=== PATIENT | male | born 1950 | race African-American/Black ===

== ENCOUNTER 2017-10-21 10:48 | Inpatient (IN) | payer MEDICARE, MEDICAID ==
[~2017-10-21] VITALS: Ht 200.7 cm; Wt 96.9 kg
[2017-10-21 11:53] LABS: BASOPHILS # (AUTO) 0.02 x10^3/uL (0-0.1); BASOPHILS % (AUTO) 0 % (0-1); EOSINOPHILS % (AUTO) 0 % (1-7); LYMPHOCYTES # (AUTO) 0.65 x10^3/uL (1-3.4); LYMPHOCYTES % (AUTO) 8 % (22-44); MD NO; MEAN CORPUSCULAR HEMOGLOBIN 28.5 pg (27.5-34.5); MEAN CORPUSCULAR HGB CONC 32.1 g/dL (33.2-36.2); MEAN CORPUSCULAR VOLUME 88.8 fL (81-97); MEAN PLATELET VOLUME 9.1 fL (7.4-10.4); MONOCYTES # (AUTO) 0.47 x10^3/uL (0.2-0.8); MONOCYTES % (AUTO) 5 % (2-9); NEUTROPHILS # (AUTO) 7.58 x10^3/uL (1.8-6.8); NEUTROPHILS % (AUTO) 87 % (42-75); PLATELET COUNT 252 x10^3/uL (130-400); RED BLOOD COUNT 4.61 x10^6/uL (4.38-5.82); RED CELL DISTRIBUTION WIDTH 18.6 % (9.4-14.8)
[2017-10-21 12:08] LABS: ALANINE AMINOTRANSFERASE 38 U/L (12-78); ALBUMIN 2.6 g/dL (3.4-5.0); CREATININE 2.92 mg/dL (0.7-1.3)
[2017-10-21 12:10] LABS: ALKALINE PHOSPHATASE 125 U/L (45-117); BILIRUBIN,TOTAL 2.4 mg/dL (0.2-1.0); TOTAL PROTEIN 7.6 g/dL (6.4-8.2)
[2017-10-21 12:14] LABS: ANION GAP 16 mmol/L (5-15); CHLORIDE 95 mmol/L (98-107)
[2017-10-21 12:23] LABS: INTERNATIONAL NORMALIZED RATIO 1.38 (0.93-1.1); PROTHROMBIN TIME 14.3 Seconds (9.6-11.5)
[2017-10-21] MEDS ORDERED: LABETALOL 5MG/ML, 20ML IVPush PRN (14:00)
[2017-10-21] MEDS ORDERED: HEPARIN 5,000 UNITS/ML, 1ML SQ SCH (14:00)
[2017-10-21] MEDS: FUROSEMIDE 40 MG/4 ML IV SCH ×2 (14:00→16:53)
[2017-10-21] MEDS ORDERED: ONDANSETRON 2MG/ML, 2ML IVPush PRN (14:00)
[2017-10-21] MEDS ORDERED: POLYETHYLENE GLYCOL 17 GM PACKET PO PRN (14:00)
[2017-10-21] MEDS ORDERED: ONDANSETRON ODT 4 MG PO PRN (14:00)
[2017-10-21] MEDS ORDERED: FUROSEMIDE 40 MG/4 ML IV ONE (14:00)
[2017-10-21] MEDS ORDERED: morphine SULFATE 10 MG/ML, 1ML IVPush PRN (14:00)
[2017-10-21] MEDS ORDERED: SODIUM CHLORIDE 0.9% 1,000 ML IV SCH (14:00)
[2017-10-21] MEDS ORDERED: FUROSEMIDE 40 MG/4 ML ONE (14:29)
[2017-10-21] MEDS ORDERED: HEPARIN 5,000 UNITS/ML, 1ML ONE (14:29)
[2017-10-21] MEDS ORDERED: ASPIRIN 81 MG TABLET EC PO ONE (14:30)
[2017-10-21 14:36] LABS: TROPONIN I 0.107 ng/mL (0.000-0.045)
[2017-10-21 14:39] LABS: FREE T4 (FREE THYROXINE) 0.44 ng/dL (0.76-1.46)
[2017-10-21] MEDS ORDERED: ASPIRIN 81 MG TABLET EC ONE (15:27)
[2017-10-21 15:51] VITALS: BP 117/75
[2017-10-21 17:11] LABS: CULTURE INDICATED? YES; MICROSCOPIC INDICATED
[2017-10-21 18:37] LABS: AMPHETAMINE SCREEN, URINE Negative (Negative); BARBITURATE SCREEN, URINE Negative (Negative); BENZODIAZEPINE SCREEN, URINE Negative (Negative); CANNABINOID SCREEN, URINE Negative (Negative); COCAINE SCREEN, URINE Negative (Negative); METHADONE SCREEN, URINE Negative (Negative); OPIATE SCREEN, URINE Negative (Negative)
[2017-10-21] MEDS: LACTATED RINGERS 1,000 ML IV SCH (18:50)
[2017-10-21 18:53] LABS: CHOLESTEROL, TOTAL 87 mg/dL (140-239); TRIGLYCERIDES 88 mg/dL (50-200); VLDL CHOLESTEROL 18 mg/dL (0-25)
[2017-10-21 18:56] LABS: CHOL/HDL RATIO 1.9; HDL CHOL % 54 % (26-37); HDL CHOLESTEROL (DIRECT) 47 mg/dL (40-60); LDL CHOLESTEROL,CALCULATED 22 mg/dL (54-169); LDL/HDL RATIO 0.5 (0.5-3.0); TROPONIN I 0.103 ng/mL (0.000-0.045)
[2017-10-21 18:57] VITALS: BP 119/74
[2017-10-21 19:34] LABS: HEMOGLOBIN A1C 7.3 % (4.2-6.3)
[2017-10-22 01:12] VITALS: BP 127/81
[2017-10-22] MEDS: LACTATED RINGERS 1,000 ML IV SCH ×2 (04:21→14:56)
[2017-10-22 04:52] LABS: BASOPHILS # (AUTO) 0.03 x10^3/uL (0-0.1); BASOPHILS % (AUTO) 1 % (0-1); EOSINOPHILS # (AUTO) 0.02 x10^3/uL (0-0.4); EOSINOPHILS % (AUTO) 0 % (1-7); LYMPHOCYTES # (AUTO) 1.09 x10^3/uL (1-3.4); LYMPHOCYTES % (AUTO) 18 % (22-44); MD NO; MEAN CORPUSCULAR HEMOGLOBIN 28.1 pg (27.5-34.5); MEAN CORPUSCULAR HGB CONC 31.8 g/dL (33.2-36.2); MEAN CORPUSCULAR VOLUME 88.2 fL (81-97); MONOCYTES # (AUTO) 0.54 x10^3/uL (0.2-0.8); MONOCYTES % (AUTO) 9 % (2-9); NEUTROPHILS # (AUTO) 4.52 x10^3/uL (1.8-6.8); NEUTROPHILS % (AUTO) 73 % (42-75); PLATELET COUNT 209 x10^3/uL (130-400); RED BLOOD COUNT 4.37 x10^6/uL (4.38-5.82); RED CELL DISTRIBUTION WIDTH 18.6 % (9.4-14.8)
[2017-10-22 05:03] LABS: ALANINE AMINOTRANSFERASE 32 U/L (12-78); ALBUMIN 2.4 g/dL (3.4-5.0); ANION GAP 11 mmol/L (5-15); CALCIUM 8.6 mg/dL (8.5-10.1); CHLORIDE 98 mmol/L (98-107); CREATININE 2.15 mg/dL (0.7-1.3)
[2017-10-22 05:13] LABS: ALKALINE PHOSPHATASE 108 U/L (45-117); TOTAL PROTEIN 6.9 g/dL (6.4-8.2)
[2017-10-22 06:26] VITALS: BP 128/65
[2017-10-22] MEDS: ASPIRIN 81 MG TABLET EC PO SCH (06:28)
[2017-10-22] MEDS: LEVOTHYROXINE 75 MCG TABLET PO SCH (06:29)
[2017-10-22] MEDS ORDERED: POTASSIUM CHLORIDE 20 MEQ TAB.ER.PRT PO ONE (08:00)
[2017-10-22 08:14] LABS: TROPONIN I 0.089 ng/mL (0.000-0.045)
[2017-10-22] MEDS: SENNA/DOCUSATE TABLET PO SCH (08:25)
[2017-10-22] MEDS: POTASSIUM CHLORIDE 20 MEQ TAB.ER.PRT PO SCH ×2 (11:30→17:49)
[2017-10-22 12:42] VITALS: BP 118/82
[2017-10-22 18:04] LABS: ANION GAP 11 mmol/L (5-15); CALCIUM 8.5 mg/dL (8.5-10.1); CHLORIDE 99 mmol/L (98-107); CREATININE 1.83 mg/dL (0.7-1.3)
[2017-10-22] MEDS ORDERED: PHARMACY MAY ADJ FOR RENAL FX MC PRN (18:30)
[2017-10-22 19:12] VITALS: BP 119/68
[2017-10-22] MEDS: AMPICILLIN/SULBACTAM 3 GM in SODIUM CHLORIDE 0.9% 100 ML IV SCH (19:43)
[2017-10-22] MEDS: DOXYCYCLINE 100MG TABLET PO SCH (19:44)
[2017-10-22 23:02] LABS: CLOSTRIDIUM DIFFICILE TOXIN NEGATIVE (Negative)
[2017-10-22 23:04] LABS: CLOSTRIDIUM DIFFICILE ANTIGEN POSITIVE
[2017-10-23 00:45] VITALS: BP 112/69
[2017-10-23] MEDS: AMPICILLIN/SULBACTAM 3 GM in SODIUM CHLORIDE 0.9% 100 ML IV SCH ×4 (00:46→18:56)
[2017-10-23] MEDS: ASPIRIN 81 MG TABLET EC PO SCH (05:43)
[2017-10-23] MEDS: LEVOTHYROXINE 75 MCG TABLET PO SCH (05:43)
[2017-10-23 05:50] LABS: BASOPHILS # (AUTO) 0.04 x10^3/uL (0-0.1); BASOPHILS % (AUTO) 1 % (0-1); EOSINOPHILS # (AUTO) 0.04 x10^3/uL (0-0.4); EOSINOPHILS % (AUTO) 1 % (1-7); LYMPHOCYTES # (AUTO) 0.82 x10^3/uL (1-3.4); LYMPHOCYTES % (AUTO) 13 % (22-44); MD NO; MEAN CORPUSCULAR HEMOGLOBIN 28.1 pg (27.5-34.5); MEAN CORPUSCULAR HGB CONC 31.5 g/dL (33.2-36.2); MEAN CORPUSCULAR VOLUME 89.4 fL (81-97); MEAN PLATELET VOLUME 8.8 fL (7.4-10.4); MONOCYTES # (AUTO) 0.57 x10^3/uL (0.2-0.8); MONOCYTES % (AUTO) 9 % (2-9); NEUTROPHILS # (AUTO) 4.99 x10^3/uL (1.8-6.8); NEUTROPHILS % (AUTO) 77 % (42-75); PLATELET COUNT 240 x10^3/uL (130-400); RED BLOOD COUNT 4.68 x10^6/uL (4.38-5.82)
[2017-10-23 06:35] LABS: ALANINE AMINOTRANSFERASE 31 U/L (12-78); ALBUMIN 2.3 g/dL (3.4-5.0); ANION GAP 9 mmol/L (5-15); CALCIUM 8.4 mg/dL (8.5-10.1); CHLORIDE 102 mmol/L (98-107); CREATININE 1.68 mg/dL (0.7-1.3)
[2017-10-23 06:37] LABS: ALKALINE PHOSPHATASE 111 U/L (45-117); BILIRUBIN,TOTAL 1.6 mg/dL (0.2-1.0); TOTAL PROTEIN 6.9 g/dL (6.4-8.2)
[2017-10-23] MEDS ORDERED: PHARMACY MAY ADJ FOR RENAL FX MC PRN (07:30)
[2017-10-23 07:41] VITALS: BP 118/69
[2017-10-23 08:03] LABS: % IRON SATURATION 6 % (20-55); IRON LEVEL 18 mcg/dL (65-175); TOTAL IRON BINDING CAPACITY 289 mcg/dL (250-450)
[2017-10-23 08:07] LABS: TROPONIN I 0.092 ng/mL (0.000-0.045)
[2017-10-23 08:29] LABS: FOLATE LEVEL 19.4 ng/mL (3.1-17.5)
[2017-10-23] MEDS ORDERED: LEVOTHYROXINE 100 MCG INJ IVPush SCH (09:00)
[2017-10-23] MEDS: SENNA/DOCUSATE TABLET PO SCH (09:00)
[2017-10-23] MEDS: VANCOMYCIN 50 MG/ML ORAL SUSP PO SCH ×3 (09:31→21:59)
[2017-10-23] MEDS: TAMSULOSIN 0.4 MG CAP.ER.24H PO SCH (09:32)
[2017-10-23] MEDS: DOXYCYCLINE 100MG TABLET PO SCH (09:32)
[2017-10-23] MEDS: POTASSIUM CHLORIDE 20 MEQ TAB.ER.PRT PO SCH ×2 (09:34→17:23)
[2017-10-23 13:27] VITALS: BP 122/73
[2017-10-23] MEDS ORDERED: LIDOCAINE-MPF 1%, 2ML ONE (14:59)
[2017-10-23] MEDS: D5%-0.9% NACL 1,000 ML IV SCH (17:23)
[2017-10-23 19:14] VITALS: BP 126/73
[2017-10-23] MEDS ORDERED: VANCOMYCIN PER PHARMACY MC PRN (22:00)
[2017-10-23] MEDS ORDERED: DOXYCYCLINE 100 MG in DEXTROSE 5% 250 ML IV SCH (22:00)
[2017-10-23] MEDS ORDERED: PHARMACOKINETIC CONSULTATION MC ONE (22:00)
[2017-10-23] MEDS ORDERED: PHARMACOKINETIC MONITORING MC PRN (22:00)
[2017-10-23] MEDS: VANCOMYCIN 2,000 MG in SODIUM CHLORIDE 0.9% 500 ML IV SCH (22:54)
[2017-10-24 01:05] VITALS: BP 131/74
[2017-10-24] MEDS: AMPICILLIN/SULBACTAM 3 GM in SODIUM CHLORIDE 0.9% 100 ML IV SCH ×4 (01:12→18:31)
[2017-10-24] MEDS: VANCOMYCIN 50 MG/ML ORAL SUSP PO SCH ×4 (03:13→21:26)
[2017-10-24] MEDS: D5%-0.9% NACL 1,000 ML IV SCH (05:20)
[2017-10-24 05:29] LABS: BASOPHILS # (AUTO) 0.02 x10^3/uL (0-0.1); BASOPHILS % (AUTO) 0 % (0-1); EOSINOPHILS # (AUTO) 0.03 x10^3/uL (0-0.4); EOSINOPHILS % (AUTO) 1 % (1-7); LYMPHOCYTES # (AUTO) 0.82 x10^3/uL (1-3.4); LYMPHOCYTES % (AUTO) 15 % (22-44); MD NO; MEAN CORPUSCULAR HEMOGLOBIN 28.3 pg (27.5-34.5); MEAN CORPUSCULAR HGB CONC 31.9 g/dL (33.2-36.2); MEAN CORPUSCULAR VOLUME 88.8 fL (81-97); MEAN PLATELET VOLUME 8.9 fL (7.4-10.4); MONOCYTES # (AUTO) 0.54 x10^3/uL (0.2-0.8); MONOCYTES % (AUTO) 10 % (2-9); NEUTROPHILS # (AUTO) 4.14 x10^3/uL (1.8-6.8); NEUTROPHILS % (AUTO) 75 % (42-75); PLATELET COUNT 239 x10^3/uL (130-400); RED BLOOD COUNT 4.68 x10^6/uL (4.38-5.82); RED CELL DISTRIBUTION WIDTH 18.7 % (9.4-14.8)
[2017-10-24] MEDS: LEVOTHYROXINE 75 MCG TABLET PO SCH (05:29)
[2017-10-24] MEDS: ASPIRIN 81 MG TABLET EC PO SCH ×2 (05:29→12:40)
[2017-10-24 05:39] LABS: CREATININE 1.69 mg/dL (0.7-1.3)
[2017-10-24 05:46] LABS: ALANINE AMINOTRANSFERASE 26 U/L (12-78); ALBUMIN 2.2 g/dL (3.4-5.0); ALKALINE PHOSPHATASE 102 U/L (45-117); BILIRUBIN,TOTAL 1.8 mg/dL (0.2-1.0); CALCIUM 8.5 mg/dL (8.5-10.1); CREATININE 1.71 mg/dL (0.7-1.3); TOTAL PROTEIN 6.7 g/dL (6.4-8.2)
[2017-10-24 06:07] LABS: ANION GAP 10 mmol/L (5-15); CHLORIDE 105 mmol/L (98-107)
[2017-10-24 06:57] VITALS: BP 125/74
[2017-10-24] MEDS: SENNA/DOCUSATE TABLET PO SCH (08:25)
[2017-10-24] MEDS: TAMSULOSIN 0.4 MG CAP.ER.24H PO SCH (08:25)
[2017-10-24] MEDS ORDERED: REGADENOSON 0.4 MG/5 ML SYRINGE ONE (09:33)
[2017-10-24] MEDS: LISINOPRIL 10 MG TABLET PO SCH (11:00)
[2017-10-24] MEDS: FUROSEMIDE 20 MG/2 ML IV SCH ×2 (12:40→17:30)
[2017-10-24 14:00] VITALS: BP 127/73
[2017-10-24] MEDS ORDERED: LIDOCAINE-MPF 1%, 5ML ONE (15:27)
[2017-10-24] MEDS: ATORVASTATIN 20 MG TABLET PO SCH (20:12)
[2017-10-24 20:21] VITALS: BP 131/76
[2017-10-25] MEDS: AMPICILLIN/SULBACTAM 3 GM in SODIUM CHLORIDE 0.9% 100 ML IV SCH ×4 (00:16→22:15)
[2017-10-25 02:00] VITALS: BP 124/73
[2017-10-25] MEDS: VANCOMYCIN 50 MG/ML ORAL SUSP PO SCH ×4 (03:57→21:48)
[2017-10-25 06:09] VITALS: BP 116/62
[2017-10-25] MEDS: METOPROLOL SUCCINATE 25 MG TAB.ER.24H PO SCH (06:12)
[2017-10-25] MEDS: LEVOTHYROXINE 75 MCG TABLET PO SCH (06:12)
[2017-10-25] MEDS: ASPIRIN 81 MG TABLET EC PO SCH (06:13)
[2017-10-25 06:47] LABS: MEAN CORPUSCULAR HEMOGLOBIN 27.6 pg (27.5-34.5); MEAN CORPUSCULAR HGB CONC 30.9 g/dL (33.2-36.2); MEAN CORPUSCULAR VOLUME 89.3 fL (81-97); MEAN PLATELET VOLUME 8.9 fL (7.4-10.4); PLATELET COUNT 238 x10^3/uL (130-400); RED CELL DISTRIBUTION WIDTH 18.7 % (9.4-14.8)
[2017-10-25 06:54] LABS: ALANINE AMINOTRANSFERASE 22 U/L (12-78); ALBUMIN 2.2 g/dL (3.4-5.0); ANION GAP 10 mmol/L (5-15); CALCIUM 8.7 mg/dL (8.5-10.1); CHLORIDE 102 mmol/L (98-107); CREATININE 1.92 mg/dL (0.7-1.3)
[2017-10-25 06:56] LABS: ALKALINE PHOSPHATASE 94 U/L (45-117); BILIRUBIN,TOTAL 1.7 mg/dL (0.2-1.0); TOTAL PROTEIN 6.6 g/dL (6.4-8.2)
[2017-10-25 07:04] LABS: BASOPHILS # (AUTO) 0.03 x10^3/uL (0-0.1); BASOPHILS % (AUTO) 1 % (0-1); EOSINOPHILS % (AUTO) 2 % (1-7); LYMPHOCYTES % (AUTO) 21 % (22-44); MD SCAN; MONOCYTES # (AUTO) 0.61 x10^3/uL (0.2-0.8); MONOCYTES % (AUTO) 10 % (2-9); NEUTROPHILS # (AUTO) 4.22 x10^3/uL (1.8-6.8); NEUTROPHILS % (AUTO) 67 % (42-75)
[2017-10-25] MEDS: FUROSEMIDE 40 MG/4 ML IV SCH ×2 (10:00→17:30)
[2017-10-25] MEDS ORDERED: FUROSEMIDE 20 MG/2 ML ONE (10:20)
[2017-10-25] MEDS: SPIRONOLACTONE 25 MG TABLET PO SCH (10:41)
[2017-10-25] MEDS: VANCOMYCIN 2,000 MG in SODIUM CHLORIDE 0.9% 500 ML IV SCH (10:41)
[2017-10-25] MEDS: TAMSULOSIN 0.4 MG CAP.ER.24H PO SCH (10:41)
[2017-10-25] MEDS: LISINOPRIL 10 MG TABLET PO SCH (10:41)
[2017-10-25] MEDS: POTASSIUM CHLORIDE 20 MEQ TAB.ER.PRT PO SCH (10:41)
[2017-10-25] MEDS: HEPARIN 5,000 UNITS/ML, 1ML SQ SCH ×2 (10:41→17:30)
[2017-10-25] MEDS: SENNA/DOCUSATE TABLET PO SCH (10:42)
[2017-10-25 15:10] VITALS: BP 110/68
[2017-10-25 19:15] VITALS: BP 121/70
[2017-10-25] MEDS: ATORVASTATIN 20 MG TABLET PO SCH (21:48)
[2017-10-26] MEDS: HEPARIN 5,000 UNITS/ML, 1ML SQ SCH ×3 (02:15→18:12)
[2017-10-26 02:47] VITALS: BP 100/69
[2017-10-26] MEDS: VANCOMYCIN 50 MG/ML ORAL SUSP PO SCH ×4 (03:42→21:06)
[2017-10-26] MEDS: AMPICILLIN/SULBACTAM 3 GM in SODIUM CHLORIDE 0.9% 100 ML IV SCH ×4 (04:19→23:25)
[2017-10-26 05:02] LABS: ANION GAP 9 mmol/L (5-15); CALCIUM 8.2 mg/dL (8.5-10.1); CHLORIDE 101 mmol/L (98-107)
[2017-10-26 05:03] LABS: CREATININE 1.71 mg/dL (0.7-1.3)
[2017-10-26] MEDS: METOPROLOL SUCCINATE 25 MG TAB.ER.24H PO SCH (06:00)
[2017-10-26] MEDS: ASPIRIN 81 MG TABLET EC PO SCH (06:13)
[2017-10-26] MEDS: LEVOTHYROXINE 75 MCG TABLET PO SCH (06:13)
[2017-10-26 07:17] VITALS: BP 94/60
[2017-10-26] MEDS: SENNA/DOCUSATE TABLET PO SCH ×2 (09:00→09:20)
[2017-10-26] MEDS ORDERED: POTASSIUM CHLORIDE 20 MEQ TAB.ER.PRT PO ONE (09:00)
[2017-10-26] MEDS: TAMSULOSIN 0.4 MG CAP.ER.24H PO SCH (09:19)
[2017-10-26] MEDS: LISINOPRIL 10 MG TABLET PO SCH (09:19)
[2017-10-26] MEDS: POTASSIUM CHLORIDE 20 MEQ TAB.ER.PRT PO SCH (09:19)
[2017-10-26] MEDS: SPIRONOLACTONE 25 MG TABLET PO SCH (09:20)
[2017-10-26] MEDS: FUROSEMIDE 40 MG/4 ML IV SCH ×2 (09:20→18:11)
[2017-10-26 15:50] VITALS: BP 99/64
[2017-10-26] MEDS: INSULIN LISPRO 100 UNITS/ML, PEN SQ-INSULIN SCH ×2 (16:00→21:00)
[2017-10-26 18:44] VITALS: BP 111/72
[2017-10-26] MEDS: ATORVASTATIN 20 MG TABLET PO SCH (21:06)
[2017-10-26] MEDS: VANCOMYCIN 2,000 MG in SODIUM CHLORIDE 0.9% 500 ML IV SCH (21:06)
[2017-10-27] MEDS: VANCOMYCIN 50 MG/ML ORAL SUSP PO SCH ×2 (02:56→09:06)
[2017-10-27] MEDS: HEPARIN 5,000 UNITS/ML, 1ML SQ SCH ×2 (02:56→11:15)
[2017-10-27 02:57] VITALS: BP 98/59
[2017-10-27] MEDS: AMPICILLIN/SULBACTAM 3 GM in SODIUM CHLORIDE 0.9% 100 ML IV SCH ×2 (04:00→11:38)
[2017-10-27 05:20] LABS: ANION GAP 8 mmol/L (5-15); CHLORIDE 102 mmol/L (98-107); CREATININE 1.43 mg/dL (0.7-1.3)
[2017-10-27 05:44] LABS: BASOPHILS # (AUTO) 0.03 x10^3/uL (0-0.1); BASOPHILS % (AUTO) 1 % (0-1); EOSINOPHILS # (AUTO) 0.17 x10^3/uL (0-0.4); EOSINOPHILS % (AUTO) 4 % (1-7); LYMPHOCYTES # (AUTO) 0.97 x10^3/uL (1-3.4); LYMPHOCYTES % (AUTO) 20 % (22-44); MD NO; MEAN CORPUSCULAR HEMOGLOBIN 28.2 pg (27.5-34.5); MEAN CORPUSCULAR HGB CONC 32.2 g/dL (33.2-36.2); MEAN CORPUSCULAR VOLUME 87.7 fL (81-97); MEAN PLATELET VOLUME 9.2 fL (7.4-10.4); MONOCYTES # (AUTO) 0.74 x10^3/uL (0.2-0.8); MONOCYTES % (AUTO) 15 % (2-9); NEUTROPHILS # (AUTO) 2.96 x10^3/uL (1.8-6.8); NEUTROPHILS % (AUTO) 61 % (42-75); PLATELET COUNT 200 x10^3/uL (130-400); RED BLOOD COUNT 4.37 x10^6/uL (4.38-5.82); RED CELL DISTRIBUTION WIDTH 18.8 % (9.4-14.8)
[2017-10-27] MEDS: ASPIRIN 81 MG TABLET EC PO SCH (05:44)
[2017-10-27] MEDS: METOPROLOL SUCCINATE 25 MG TAB.ER.24H PO SCH (05:44)
[2017-10-27] MEDS: LEVOTHYROXINE 75 MCG TABLET PO SCH (05:44)
[2017-10-27] MEDS ORDERED: POTASSIUM CHLORIDE 20 MEQ TAB.ER.PRT PO ONE (06:30)
[2017-10-27] MEDS ORDERED: SPIR25TA PO (06:42)
[2017-10-27] MEDS ORDERED: ASPI-621 PO (06:42)
[2017-10-27] MEDS ORDERED: LEVO75TA PO (06:42)
[2017-10-27] MEDS ORDERED: LISI-167 PO (06:42)
[2017-10-27] MEDS ORDERED: VANC1VIA3 PO (06:42)
[2017-10-27] MEDS ORDERED: METO25TA91 PO (06:42)
[2017-10-27] MEDS ORDERED: ATOR20TA9 PO (06:42)
[2017-10-27] MEDS ORDERED: TAMS-11 PO (06:42)
[2017-10-27] MEDS ORDERED: LINE600T37 PO (06:44)
[2017-10-27] MEDS: INSULIN LISPRO 100 UNITS/ML, PEN SQ-INSULIN SCH ×2 (07:00→11:00)
[2017-10-27 08:50] VITALS: BP 102/66
[2017-10-27] MEDS: POTASSIUM CHLORIDE 20 MEQ TAB.ER.PRT PO SCH (08:57)
[2017-10-27] MEDS: TAMSULOSIN 0.4 MG CAP.ER.24H PO SCH (08:59)
[2017-10-27] MEDS: LISINOPRIL 10 MG TABLET PO SCH (09:00)
[2017-10-27] MEDS: SENNA/DOCUSATE TABLET PO SCH (09:00)
[2017-10-27] MEDS: SPIRONOLACTONE 25 MG TABLET PO SCH (09:01)
[2017-10-27] MEDS: FUROSEMIDE 40 MG/4 ML IV SCH (09:02)
[2017-10-27] MEDS ORDERED: POTA20PA25 PO (11:24)
[2017-10-27] MEDS ORDERED: CLOP75TA52 PO (11:25)
[2017-10-27] MEDS ORDERED: FURO-92 PO (11:26)
[2017-10-27 13:57] VITALS: BP 94/64
== END 2017-10-27 14:48 | DRG 682 ==
LOC: ED 13:38 → EDIP 13:39 → ED 13:47 → 5SO 15:53
PROVIDERS: ADMIT Hospitalist; ATTEND Hospitalist
PROC: 0T9B70Z Drainage of Bladder with Drainage Device, Via Natural or Artificial Opening (ICD-10-PCS; principal; 2017-10-21)
DX: N17.9 Acute kidney failure, unspecified (principal); E43 Unspecified severe protein-calorie malnutrition; I50.23 Acute on chronic systolic (congestive) heart failure; A04.72 Enterocolitis due to Clostridium difficile, not specified as recurrent; I13.0 Hypertensive heart and chronic kidney disease with heart failure and stage 1 through stage 4 chronic kidney disease, or unspecified chronic kidney disease; E87.1 Hypo-osmolality and hyponatremia; I47.2 Ventricular tachycardia; N18.9 Chronic kidney disease, unspecified; E86.0 Dehydration; E11.22 Type 2 diabetes mellitus with diabetic chronic kidney disease; I27.20 Pulmonary hypertension, unspecified; I25.5 Ischemic cardiomyopathy; E11.51 Type 2 diabetes mellitus with diabetic peripheral angiopathy without gangrene; E03.9 Hypothyroidism, unspecified; D64.9 Anemia, unspecified; I07.1 Rheumatic tricuspid insufficiency; R33.9 Retention of urine, unspecified; Z79.899 Other long term (current) drug therapy; Z79.82 Long term (current) use of aspirin; Z95.810 Presence of automatic (implantable) cardiac defibrillator; Z91.14 Patient's other noncompliance with medication regimen; Z87.891 Personal history of nicotine dependence; Z79.1 Long term (current) use of non-steroidal anti-inflammatories (NSAID); Z68.24 Body mass index [BMI] 24.0-24.9, adult
CPT/HCPCS: 10030; 10160; 36415; 70450; 70490; 71045; 76536; 76770; 76942; 78452; 80048; 80053; 80061; 80307; 81001; 82040; 82140; 82565; 82570; 82607; 82728; 82746; 82962; 83036; 83540; 83550; 83735; 83880; 84100; 84300; 84439; 84443; 84484; 85025; 85610; 87040; 87070; 87075; 87077; 87086; 87147; 87186; 87205; 87324; 87493; 88112; 88305; 93005; 93017; 93306; 93922; 93970; 96372; J0295; J1644; J1940; J2785; J3370; J3490; J7042; A9502; C9898; J1815; J7030; J7040; J7120